=== PATIENT | female | born 1945 | race Caucasian/White ===

== ENCOUNTER 2016-05-08 06:32 | Day surgery (SDC) | payer MEDICARE ==
[2016-05-08] VITALS (8 sets, daily range): BP systolic 159–174; BP diastolic 75–84; PULSE 71–84; RESP 10–18; O2SAT 91–99
[~2016-05-08] VITALS: Ht 160 cm; Wt 78.5 kg
[2016-05-08] MEDS: Lactated Ringer's 1,000 ML IV SCH ×2 (05:03→08:27)
[~2016-05-08 06:32] MED LIST: CeFAZolin 2 Gm/50 mL D5W IV Premix IV ONE; DOCO1CAP3 PO; LACT1CAP60 PO; METR59LO TOP; OMEP40CA36 PO; RANI150C4 PO; RANI300C PO; biotin; vitamin d3
[2016-05-08] MEDS ORDERED: EPHEDrine/NS 5 mg/mL 5 mL Syringe ONE (06:33)
[2016-05-08] MEDS ORDERED: Dexamethasone 4 mg/mL Inj ONE (06:33)
[2016-05-08] MEDS ORDERED: Rocuronium 10 mg/mL 5 mL Inj ONE (06:33)
[2016-05-08] MEDS ORDERED: Ondansetron 2 mg/mL 2 mL Inj ONE (06:33)
[2016-05-08] MEDS ORDERED: Glycopyrrolate 0.2 mg/mL 5 mL Inj ONE (06:33)
[2016-05-08] MEDS ORDERED: HYDROmorphone 2 mg/mL Inj ONE (06:33)
[2016-05-08] MEDS ORDERED: fentaNYL-PF 50 mCg/mL 2 mL Inj ONE (06:33)
[2016-05-08] MEDS ORDERED: Neostigmine 1 mg/mL 5 mL Inj ONE (06:33)
--- NOTE | 2016-05-08 08:23 | PCM.HPANE ---
Patient Data Date of Service: May 08, 2016 Surgeon Admitting Provider: Attending Provider:Aleksandra Haskins MD Primary Care Physician:Tigre Carrington MD Other Provider:Young Lorenz Anesthesia Reason for Visit Biliary Dyskinesia Ht/WT & BMI Height (Feet): 5 Height (Inches): 3.00 Weight (Kilograms): 78.5 Body Mass Index 30.00 Allergies Coded Allergies: clindamycin (Verified Allergy, Unknown, hives, 05/02/16) Past Anesthesia History Anesthesia History: Denies:: Abnormal Airway, Anesthesia Reactions, Difficult Intubation, Fam Anesthesia Reaction, Fam Malignant Hypertherm, Malignant Hyperthermia Diabetes History Hx Diabetes?: No MRSA MRSA: No Medications Home Meds Incl Beta Yaz: No Reported Medications [biotin] No Conflict CheckUnknown Dose DAILY 05/02/16 [vitamin d3] No Conflict CheckUnknown Dose DAILY 05/02/16 Lactobac Cmb #3/Fos/Pantethine (Probiotic & Acidophilus Cap)1 Each Capsule1 Each PO DAILY 05/02/16 Metronidazole (Metronidazole Lotion)59 Ml Lotion1 Applic TOP BID PRN skin irritation #59 ML Ref 0 05/02/16 Docosahexanoic Acid/Epa (Fish Oil Concentrate Softgel)1 Each Capsule1 Each PO DAILY 05/02/16 Ranitidine 300 Mg Ahjdmaz568 Mg PO HS Ref 0 05/02/16 Ranitidine 150 Mg Ypssmlp595 Mg PO QAM Ref 0 05/02/16 Omeprazole 40 Mg Capsule.dr40 Mg PO BID Ref 0 05/02/16 Discontinued Reported Medications Clarithromycin 500 Mg Vapflu349 Mg PO Q12 10 Days Ref 0 08/17/13 Omeprazole Magnesium (Omeprazole)20 Mg Capsule.dr20 Mg PO BID 30 Days Ref 0 08/17/13 Diazepam 2 Mg Tablet2-4 Mg PO BID PRN For Spasm 08/17/13 Metronidazole (Metronidazole Cream)45 Gm Cream..g.1 Applic TOP BID 08/17/13 Sodium,Potassium,&Mag Sulfates (Suprep Bowel Prep Kit)354 Ml Soln.qocav279 Ml PO DIRECTED 08/17/13 Bisacodyl (Dulcolax)5 Mg Tablet.dr20 Mg PO DAILY Ref 0 08/17/13 Sodium Chloride/Nahco3/KCl/Peg (Trilyte with Flavor Packets)4,000 Ml Soln.recon4 ,000 Ml PO DIRECTED 08/17/13 Omeprazole 40 Mg Capsule.dr40 Mg PO DAILY 30 Days Ref 0 08/17/13 History HEENT History: Positive for:: Dysphagia Denies:: Abnormal Airway Difficult Intubation Hearing Problem Hx of Heart Problems?: No Cardiovascular History: Denies:: AICD Atrial Fibrillation Chest Pain Hypertension Pacemaker Valvular Heart Disease Hx of Respiratory Problem?: No Respiratory History: Denies:: Asthma COPD Cough Hemoptysis Oxygen Administration Pneumonia Tuberculosis Use of C-PAP Machine Neurological History: Denies:: CVA Dementia Multiple Sclerosis Parkinson's Disease Seizures Other History/Comments chronic pain, myofascial pain Hx of GI Problems?: Yes Gastrointestinal History: Positive for:: Gall Bladder Disease (current admission plan) Gastroesphageal Reflux Heartburn Denies:: Cirrhosis Diverticulitis Hiatal Hernia Rectal Bleeding Hx of Problems?: No Genitourinary History: Denies:: Kidney Stones Urinary Tract Infection Female Hx: Denies:: Currently Skin History: Denies:: History Skin Disorders? Hx Musculoskeletal Problems?: Yes Musculoskeletal History: Positive for:: Back Injury (myofascial pain syndrome , chronic neck pain, uses TENS unit) Denies:: Joint Replacement Musculoskeletal Trauma Psycho Social History: Denies:: Anxiety Hx Depression Hx Surgeries?: Yes (MOHS- lip, tubal, tonsil) Hx Any Other Health Problems?: Yes Other History: Positive for:: Cancer (BCC) Denies:: Thyroid Disease Hx Diabetes: No Hx Alcohol Use: Yes (infrequently)Hx Substance Use: NoHave You Smoked inLast 12 mo: No Stop/Bang S-Snoring: Do You Snore Loudly: No T-Tired: feel tired, fatigued: No O-Obsered: Observed not breath: No P-Blood Pressure: treated: No B- Body Mass Index > 35 kg/m2: No A- Age over 50: Yes N- Neck Large Circumference: No G- Gender Male: No SANTIAGO Total Score: 1 Risk Assessment Category Category 1A: Patient has history of documented sleep apnea, and HAS NOT received any narcotic, sedative or anesthesia administration during this stay. Category 1B: Patient has history of documented sleep apnea, and HAS received any narcotic , sedative or anesthesia administration during this stay Category 2: Patient has SUSPECTED Obstructive Sleep Apnea, and HAS received any narcotic , sedative or anesthesia administration during this stay. Category 3: Patient has SUSPECTED Obstructive Sleep Apnea and HAS NOT received narcotic, sedative or anesthesia administration during this stay. Category 4: Outpatient in Procedural Areas with known sleep apnea or who screen positive for High Risk via the STOP/BANG questionnaire. Exam Exam Vital Signs Vital Signs Date Time Temp Pulse Resp B/P Pulse Ox O2 Delivery O2 Flow Rate FiO2 05/08/16 07:00 36.1 74 16 165/75 94 Room Air General Appearance: Alert, Oriented X3, Cooperative, No Acute Distress HEENT/AIRWAY: MP 2, Neck Movement (voje-ii-iinc stiff), Mouth Opening Lungs: Clear to Auscultation, Normal Air Movement Heart: Exam Unremarkable, Regular Rate/Rhythm, No Murmurs/Rubs/Gallops Meds/Labs/Diagnostics Admission Meds Current Medications Lactated Ringer's (Lr) 1,000 ml @ 120 mls/hr Q8H20M IV Last administered on 05:03; Start 05/08/16 at 05:00; Stop 05/08/16 at 13:19 Acetaminophen (Tylenol) 650 mg STK-MED ONCE PO Last administered on 05/08/16 07 :24; Start 05/08/16 at 07:18; Stop 05/08/16 at 07:19; Status DC Gabapentin (Neurontin) 600 mg STK-MED ONCE .ROUTE Last administered on 07:24; Start 05/08/16 at 07:19; Stop 05/08/16 at 07:20; Status DC Celecoxib (CeleBREX) 200 mg STK-MED ONCE .ROUTE Last administered on 05/08/16 07:24; Start 05/08/16 at 07:20; Stop 05/08/16 at 07:21; Status DC Plan Impression Patient chart reviewed, patient interviewed and anesthestic plan with risks, benefits, and alternatives discussed, and informed consent obtained. NPO Status: 05/07 at 2200 ASA Physical Status: ASA2 Mod Systemic Disease Anesthetic Plan: GA Bene/Risks/Altern/Consents: Yes HP Complete Prior to Induction: Yes Jarred Brownlee MD May 08, 2016 08:23
[2016-05-08] MEDS ORDERED: Bupivacaine-MPF 0.5% W/EPI 30 mL Inj INFILTRATE ONE (08:27)
[2016-05-08] MEDS ORDERED: Lactated Ringer's 1,000 ML IV SCH (08:51)
[2016-05-08] MEDS ORDERED: Lactated Ringer's 500 ML IV PRN (08:51)
[2016-05-08] MEDS ORDERED: EPHEDrine Sulfate 50 mg/mL Inj IVPUSH PRN (08:55)
[2016-05-08] MEDS ORDERED: Phenylephrine 10,000 mCg/mL Inj IVPUSH PRN (08:55)
[2016-05-08] MEDS ORDERED: fentaNYL-PF 50 mCg/mL 2 mL Inj IVPUSH PRN (08:55)
[2016-05-08] MEDS ORDERED: Labetalol 5 mg/mL 4 mL Inj IV PRN (08:55)
[2016-05-08] MEDS ORDERED: hydrALAZINE 20 mg/mL Inj IVPUSH PRN (08:55)
[2016-05-08] MEDS ORDERED: HYDROmorphone 1 mg/mL Inj IVPUSH PRN (08:55)
[2016-05-08] MEDS ORDERED: Atropine 0.4 mg/mL Inj IVPUSH PRN (08:55)
[2016-05-08] MEDS ORDERED: MetoCLOpramide 5 mg/mL 2 mL Inj IVPUSH PRN (08:55)
[2016-05-08] MEDS ORDERED: Ondansetron 2 mg/mL 2 mL Inj IVPUSH PRN (08:55)
--- NOTE | 2016-05-08 09:46 | PCM.ANEP1 ---
Post Anesthesia Phase 1 PACU Phase 1 Assessment Date of Service: May 08, 2016 Vital Signs 36.6 157/80 81 15 99% FM Anesthetic Administered: GA Level of Alertness: Sleepy, easy to arouse CASIANO's with Equal Strength: Yes Pain: Yes Pain Scale Score: 3 Nausea or Vomiting: No Oxygen Delivery: Simple Mask Lungs: Clear to Auscultation, Normal Air Movement Jarred Brownlee MD May 08, 2016 09:46
[2016-05-08] MEDS ORDERED: oxyCODONE-Acetamin 5-325 mg Tablet PO PRN (09:50)
--- NOTE | 2016-05-08 09:56 | PCM.SURGOP ---
Surgical Operative Report Date of Service: May 08, 2016 Pre Operative Diagnosis Biliary dyskinesia Post Operative Diagnosis Biliary dyskinesia Procedure: Laparoscopic cholecystectomy Surgeon and Test Borer: Surgeon: Aleksandra Haskins M.D. Assistants: Gulshan Sifuentes PA-C A surgical supervisor was necessary for retraction and dissection Indication for Procedure This is a 71-year-old woman with epigastric abdominal pain who underwent workup including abdominal ultrasound, which appeared normal, and HIDA scan, revealed an abnormally low gallbladder ejection fraction. Upper endoscopy was essentially normal, as was 24-hour pH study. She was therefore booked for laparoscopic cholecystectomy. Findings: 1. Very mild inflammation of the gallbladder. 2. No gallstones. Procedure Details The patient was brought to the operating room and placed in supine position. General endotracheal anesthesia was smoothly induced. Antibiotics were infused. A warming blanket and SCDs were placed. A foot board was placed. The operative field was prepped and draped in sterile fashion. A pause was performed to confirm the correct patient, procedure, site, and side. A transverse 10 mm incision was made just below the umbilicus. The abdomen was entered under direct vision using a Emily port. Three additional 5 mm ports were placed in the epigastrium and right upper quadrant. The gallbladder was identified and lifted cephalad. Dissection then proceeded to identify the cystic duct, cystic artery, and to fully expose the cystic plate. Once there were two and only two structures entering the gallbladder, the cystic duct was clipped on the gallbladder and patient side, and the cystic artery was clipped twice on the patient's side and once on the gallbladder side, and both were then divided. The gallbladder was then removed from its bed on the liver with electrocautery. Prior to completely removing the gallbladder, a final look was taken at the stump of the cystic artery and cystic duct, and there was no bleeding or bile leak. The gallbladder was then fully removed from the liver and placed in an EndoCatch bag and removed. The three 5 mm ports were removed under direct vision, the 10 mm mid abdominal port was removed, and a figure-of- eight 0 Vicryl was used to close the fascia. There was no fascial defect at the end of the case. 0.5% Marcaine with epinephrine was infused at all port sites for postoperative analgesia. The skin was closed with subcuticular 4-0 Monocryl. Sterile dressings were placed. The patient was awakened from general anesthesia and taken to the postoperative care unit in good condition. Complications There were no periprocedural complications identified. Surgical Specimen Removed: Yes Specimen sent to Pathology: Yes Surgical Specimen description: Gallbladder Anesthetic Plan: GA Grafts, Implants: None Output, Estimated Blood Loss: 1 (ml) Blood Administration during becerra: No Aleksandra Haskins MD May 08, 2016 09:56
--- NOTE | 2016-05-08 11:29 | PCM.ANEP2 ---
Post Anesthesia Evaluation ASA/CMS Post Anesthesia Date of Service: May 08, 2016 VS in Patient's Normal Range?: Yes Resp Stable; Airway Patent?: Yes CV Function & Hydration Stable: Yes Mental Status Recovered?: Yes Pain control Satisfactory?: Yes N/V Control Satisfactory?: Yes Jarred Brownlee MD May 08, 2016 11:29
--- NOTE | 2016-05-09 12:09 | PATH ---
SURGICAL PATHOLOGY Attending Physician:Aleksandra Haskins MD CASE STATUS: Signed Out PATIENT NAME: MORTEZA KYLE PID: [id number] : 1945 DATE COLLECTED:05/08/2016 15:38 SPECIMEN: Gallbladder CLINICAL HISTORY: A: GALLBLADDER FINAL DIAGNOSIS: 1.GALLBLADDER: CHOLELITHIASIS AND CHOLESTEROLOSIS. ICD10 CODE K80.7 K82.4 GROSS DESCRIPTION: The specimen is received in one formalin filled container labeled with the patient's name, sublabeled "gallbladder" and consists of an opened 6.8 x 3.0 x 2.0 CM gallbladder. The serosa is smooth. The wall is 0.2-0.4 CM in thickness. The mucosa is a dark green in color. The lumen contains one light yellow green rough calculus which measures 0.4 x 0.4 x 0.4 CM. 5 telephone sales representative sections are submitted in one cassette. 05/08/2016 DAC MICRO DESCRIPTION: See diagnosis. ICD-9 CODES: CPT CODES: 1: 44322 Electronically Signed Out Carlie Rodrigues MD [facility] [address], [place] [address] Technical component performed at [facility], [facility] [address], [address]
== END 2016-05-08 23:59 | disposition home or self-care (01) ==
LOC: SAS 06:32
PROVIDERS: ATTEND Surgery
DX: K82.8 Other specified diseases of gallbladder (principal); K80.20 Calculus of gallbladder without cholecystitis without obstruction; K21.9 Gastro-esophageal reflux disease without esophagitis; E78.5 Hyperlipidemia, unspecified; G89.29 Other chronic pain; R13.10 Dysphagia, unspecified; Z86.010 Personal history of colon polyps; Z85.828 Personal history of other malignant neoplasm of skin
CPT/HCPCS: 47562; J0690; J1100; J1170; J2405; J2710; J7120